=== PATIENT | male | born 1985 | race Caucasian/White ===

== ENCOUNTER 2017-05-26 19:15 | Emergency (ER) | payer MEDICAID ==
[~2017-05-26] VITALS: Ht 177.8 cm; Wt 72.1 kg
[2017-05-26] MEDS ORDERED: CEFAZOLIN 1,000 MG IM ONE (21:00)
[2017-05-26] MEDS ORDERED: CEFAZOLIN 1,000 MG ONE (21:06)
[2017-05-26 21:34] LABS: HEMATOCRIT 42.6 % (39.2-51.8); HEMOGLOBIN 14.2 g/dL (13.7-18.0); WHITE BLOOD COUNT 10.7 x10^3/uL (3.4-10)
[2017-05-26 21:39] VITALS: BP 134/96
== END 2017-05-26 22:06 | disposition home or self-care (01) ==
LOC: ED 22:00
DX: L03.211 Cellulitis of face (principal)
CPT/HCPCS: 36415; 85025; 96372; 99283; J0690